=== PATIENT | male | born 1935 | race Caucasian/White ===

== ENCOUNTER 2016-12-22 00:23 | Observation (INO) | payer MEDICARE ==
[~2016-12-22] VITALS: Ht 172.7 cm; Wt 74.6 kg
[~2016-12-22 00:23] MED LIST: ASPI1TAB PO; CARV12.5 PO; DILT240C75 PO; DOXA1TAB41 PO; LISI-538 PO; LISI40TAB PO; OMEP20CA3 PO; VITMTA PO
[2016-12-22] MEDS ORDERED: SIMV40TA2 PO (00:40)
[2016-12-22] MEDS ORDERED: AMIO20TA PO (00:40)
[2016-12-22] MEDS ORDERED: LOPR1TAB6 PO (00:40)
[2016-12-22] MEDS ORDERED: hydrALAZINE INJ 20 MG/ML VIAL IV ONE ×2 (01:00→03:00)
[2016-12-22 01:04] LABS: BASO % 0.6 % (0.0-1.0); EOS # 0.8 K/mm3 (0.0-0.50); LARGE UNSTAINED CELL # 0.2 K/mm3 (0.0-0.4); LARGE UNSTAINED CELL % 2.4 % (0.0-4.0); LYMPH # 2.5 K/mm3 (1.5-4.5); LYMPH % 29.2 % (24.0-44.0); MEAN CORPUSCULAR HEMOGLOBIN 27.7 pg (27.0-33.0); MEAN CORPUSCULAR VOLUME 83.9 fl (80.0-96.0); MONO # 0.6 K/mm3 (0.0-0.8); NEUTROPHILS # 4.3 K/mm3 (1.8-7.7); NEUTROPHILS % 50.8 % (36.0-66.0); PLATELET COUNT, AUTOMATED 333 k/mm3 (150-450); RED CELL DISTRIBUTION WIDTH 14.8 % (11.5-14.5); WHITE BLOOD COUNT 8.5 K/mm3 (4.0-10.0)
[2016-12-22 01:35] LABS: ANION GAP 6 MEQ/L (8-16); BLOOD UREA NITROGEN 12 MG/DL (7-18); CALCIUM LEVEL 9.2 MG/DL (8.8-10.2); CARBON DIOXIDE LEVEL 30 MEQ/L (21-32); CHLORIDE LEVEL 103 MEQ/L (98-107); CREATININE FOR GFR 1.25 MG/DL (0.70-1.30); GLOMERULAR FILTRATION RATE 58.7 (>35); GLUCOSE, FASTING 112 MG/DL (83-110); POTASSIUM SERUM 3.6 MEQ/L (3.5-5.1); SODIUM LEVEL 139 MEQ/L (136-145)
--- NOTE | 2016-12-22 02:20 | REPUSA ---
CLINICAL HISTORY: Headache. TECHNIQUE: Multiple axial CT images were obtained through the brain without IV contrast material. COMMENTS: There is normal configuration of sella turcica. There are no intra or extra-axial collections. There is no mass effect or midline shift. There is no evidence of hematoma formation. No hydrocephalus is p resent. The ventricles are symmetrical. No abnormal calcifications are present. There is diffuse age-appropriate cerebellar and cerebral atrophy with proportionally dilated ventricl es and cortical sulci. There are bilateral periventricular and subcortical white matter hypolucencies compatible with mild c hronic microvascular disease. Otherwise, no significant focal abnormalities are seen either in the posterior fossa or supratentoria l compartment. IMPRESSION: 1. Age-appropriate cerebellar and cerebral atrophy. 2. Mild chronic microvascular disease. 3. No evidence of acute intracranial pathology. Thank you for your kind referral of this patient.
[2016-12-22] MEDS ORDERED: ACETAMINOPHEN TAB 650MG DOSE (2X325MG) PO PRN (03:45)
[2016-12-22] MEDS ORDERED: LISI-542 PO (04:06)
[2016-12-22] MEDS ORDERED: FUSICAP PO (04:06)
[2016-12-22] MEDS ORDERED: TYLE325T5 PO (04:06)
[2016-12-22 05:26] VITALS: BP 190/90
[2016-12-22] MEDS ORDERED: LISINOPRIL 10 MG TAB PO SCH (07:30)
[2016-12-22 07:35] VITALS: BP 182/100
[2016-12-22 08:23] LABS: MEAN CORPUSCULAR VOLUME 83.9 fl (80.0-96.0); RED CELL DISTRIBUTION WIDTH 14.9 % (11.5-14.5); WHITE BLOOD COUNT 9.8 K/mm3 (4.0-10.0)
[2016-12-22] MEDS: ASPIRIN 81 MG ENTERIC TAB PO SCH (08:41)
[2016-12-22 08:42] LABS: ANION GAP 8 MEQ/L (8-16); BLOOD UREA NITROGEN 11 MG/DL (7-18); CARBON DIOXIDE LEVEL 28 MEQ/L (21-32); CHLORIDE LEVEL 105 MEQ/L (98-107); CREATININE FOR GFR 1.22 MG/DL (0.70-1.30); GLOMERULAR FILTRATION RATE > 60.0 (>35); GLUCOSE, FASTING 140 MG/DL (83-110); POTASSIUM SERUM 3.8 MEQ/L (3.5-5.1); SODIUM LEVEL 141 MEQ/L (136-145)
[2016-12-22] MEDS: OMEPRAZOLE 20 MG CAP PO SCH (08:42)
[2016-12-22] MEDS: MULTIVITAMINS/MINERALS THERAP 1 TAB PO SCH (08:42)
[2016-12-22] MEDS: METOPROLOL TART 50 MG TAB PO SCH ×2 (08:42→20:30)
[2016-12-22] MEDS: AMIODARONE 200 MG TAB (PACERONE) PO SCH (08:42)
[2016-12-22] MEDS: HEPARIN SOD (PORCINE) 5000 UNITS/ML VIAL SQ SCH ×2 (08:43→20:28)
[2016-12-22] MEDS ORDERED: LISINOPRIL 5 MG TAB PO SCH (09:00)
--- NOTE | 2016-12-22 09:12 | REP ---
PORTABLE CHEST: Single portable view of the chest is performed and compared to a prior study of 06/15/2016. There is left lower lobe infiltrate and pleural effusion. No acute infiltrate is seen on the right. Heart size is not well evaluated. Multiple sternal wires are present. IMPRESSION: Left lower lobe infiltrate with small left effusion. Signed by Pastor Olmos MD 12/22/2016 05:40 P
--- NOTE | 2016-12-22 09:14 | REP ---
TWO VIEW CHEST: Two views of the chest are performed. There is left lower lobe infiltrate with small left effusion. Right lung demonstrates no acute infiltrate. Heart size is not well evaluated. Multiple sternal wires are present. There are degenerative changes of the spine. IMPRESSION: Left lower lobe infiltrate and small left effusion. Signed by Pastor Olmos MD 12/22/2016 05:40 P
[2016-12-22 09:45] VITALS: BP 180/88
[2016-12-22 12:00] VITALS: BP 196/100
[2016-12-22] MEDS: ISOSORBIDE DIN (ISORDIL) 10 MG TAB PO SCH ×2 (13:30→20:30)
--- NOTE | 2016-12-22 15:23 | REP ---
CT CHEST: HISTORY: Pleural effusion assessment. COMPARISON CHEST CT: None. Limited evaluation of the mediastinum and pulmonary josé show no evidence of adenopathy. There is a left pleural effusion which is small, but a portion of which appears loculated and is seen in conjunction with areas of consolidation of the left lower lobe and inferior lingula with air bronchograms. There is no pericardial effusion. The imaged upper abdomen shows cholelithiasis and a partially imaged right renal cyst. Evaluation of the osseous structures shows age-related spinal degenerative changes and evidence of previous median sternotomy. Evaluation of the lung jensen show no spiculated masses. IMPRESSION: Loculated pleural fluid on the left as described above with areas of lung consolidation and air bronchograms, infectious versus neoplastic versus atelectatic etiologies. This needs to be correlated clinically with appropriate followup. The imaged upper abdomen shows cholelithiasis and a partially imaged right renal cyst. Consider complete evaluation of the renal changes with ultrasound. Other findings as described above. Signed by Kris Keita DO 12/22/2016 04:53 P
--- NOTE | 2016-12-22 16:26 | IPN ---
DATE: 12/22/2016 PRIMARY CARE PROVIDER: Dr. Palomo MOUNT LOADER: The patient is supposed to see Dr. Edgar Patient was admitted overnight for hypertension. Denies any chest pain, pressure or discomfort. Denies any fevers or chills. Recently had a coronary artery bypass graft (CABG). Was also complicated with subsequent pleural effusions requiring two thoracenteses. The patient denies any chest pain, pressure or discomfort. Denies any shortness of breath at this time. VITAL SIGNS: Temperature 96, pulse 72, respirations 18, blood pressure 196/100. Repeat blood pressure 174/86. LABORATORY DATA: WBC 9.8, hemoglobin and hematocrit 11.4/36.9, platelets 357. Chemistry: Sodium 141, potassium 3.8, chloride 105, bicarbonate 28, BUN 11, creatinine 1.22. Cardiac enzymes negative times three. PHYSICAL EXAMINATION: GENERAL: The patient is alert and oriented times three. No acute distress. Comfortable. HEENT: Normocephalic, atraumatic. PULMONARY: Bilaterally clear to auscultation. Diminished breath sounds in the left lower base. CARDIAC: Regular rate and rhythm. Normal S1, S2. ABDOMEN: Soft, nontender. Positive bowel sounds. EXTREMITIES: No edema in bilateral lower extremities. ASSESSMENT AND PLAN: This is an 81-year-old male patient with underlying medical history of hypertension, benign prostatic hypertrophy (BPH) with transurethral resection of prostate (TURP) in the past and history of syncope. Recently, the patient had a coronary artery bypass graft (CABG) in [place] about 6 weeks ago. Subsequently developing two episodes of pleural effusion requiring thoracentesis. Subsequently, the patient is visiting [place] for the summer and realized that he has blood pressure in the 180s to 200s. Subsequently, presented to the emergency room and was admitted. 1. Hypertensive urgency. The patient's home medication of Lisinopril was increased to Lisinopril 10 mg by mouth twice a day, metoprolol 25 mg by mouth twice a day were continued. Isordil 10 mg by mouth every 8 hours was continued. Followup kidney function. Adjust medications as needed. 2. Coronary arterial disease with recent coronary artery bypass graft (CABG). Continue aspirin, iyfbedcayoh-cgadvjkbop-wdnsrh (DOMINIC) inhibitor, beta yasmeen. Isordil has been added. Continue statin. Monitor blood pressure. Cardiac enzymes negative times three. Cardiology, Dr. Edgar, has been consulted. 3. Cardiac arrhythmia. The patient is on amiodarone 200 mg by mouth daily. Telemetry monitoring. 4. Pleural effusion. Requesting records from the patient's [facility] for chest x-ray. CT of the chest appreciated. Currently minimal loculated effusion with no dyspnea. We will compare previous x-ray to the current x-ray. We will discuss the case with thoracic surgery, Dr. Colunga. Incentive spirometry. 5. History of gastrointestinal bleed. Followup hemoglobin and hematocrit. Currently at baseline. 6. Deep vein thrombosis (DVT) prophylaxis. Heparin subcutaneously. DISPOSITION PLANNING: Pending cardiology followup, optimization of the patient's blood pressure, physical therapy has been ordered.
[2016-12-22 16:30] VITALS: BP 140/80
[2016-12-22] MEDS: SIMVASTATIN 40 MG TAB PO SCH (17:29)
--- NOTE | 2016-12-22 17:30 | REP ---
RENAL ULTRASOUND: HISTORY: Cyst. COMPARISON: 06/23/2016. The kidneys are increased in echogenicity. The right kidney measures 5 cm in transverse x 6 cm in AP x 10.7 cm in cephalocaudal dimensions. The left kidney measures 4.5 cm in transverse x 4 cm in AP x 10.8 cm in cephalocaudal dimensions. A cyst is present in the right kidney. The cyst measures 2.5 x 2.6 x 2.5 cm. There is no hydronephrosis or mass. There are no filling defects in the urinary bladder. IMPRESSION: 1. 2.6 cm right renal cyst. 2. The kidneys are increased in echogenicity consistent with medical renal disease. Signed by Herb Byrd MD 12/23/2016 08:41 A
[2016-12-22 20:00] VITALS: BP 166/81
[2016-12-22] MEDS: FUROSEMIDE 20 MG TAB PO SCH (20:28)
[2016-12-22] MEDS: DOCUSATE SODIUM 100 MG CAP PO SCH (20:28)
[2016-12-22] MEDS: LISINOPRIL 10 MG TAB PO SCH (20:30)
--- NOTE | 2016-12-22 20:32 | CR ---
DATE OF CONSULTATION: 12/22/2016 REFERRING PHYSICIAN: Dr. Posadas He INDICATION: Recent open heart surgery, pleural effusion, hypertension. HISTORY OF PRESENT ILLNESS: Mr. Ribeiro is previously unknown to me. He is a very pleasant 81-year-old man who has a history of coronary artery bypass surgery on 11/17/2016 in [place]. He reportedly received four-vessel bypass. I currently do not have the records from the procedure. Apparently his postoperative course was somewhat bumpy, he in the process had episodes of atrial fibrillation. He had repeated thoracentesis, the second one was last week on where approximately half a liter was removed from his left chest. He also had very variable blood pressure, apparently after initial discharge from hospital he had a syncopal event at home that was felt to be related to severe hypotension. He was readmitted to the hospital, several of his medications were removed. One of the medications that was taken off was furosemide and his family noted that since its discontinuation his blood pressure has been slowly climbing up. On the day of admission he took his blood pressure at home and when he got repeated measurements over 200 he got quite concerned. He felt relatively well. He tells me that he has mild pressure in his head when his blood pressure exceeds 200 mmHg systolic, but did not have any chest pain, shortness of breath or any other symptoms. PAST MEDICAL HISTORY: 1. Coronary artery disease, history of four-vessel coronary artery bypass graft (CABG) on 11/17/2016. 2. Postoperative paroxysmal atrial fibrillation currently on amiodarone. 3. Longstanding history of arterial hypertension. 4. History of BPH. 5. History of peptic ulcer disease with apparently active gastrointestinal (GI) bleeding shortly prior to his open heart surgery. SURGICAL HISTORY: Positive for CABG, left rotator cuff repair and transurethral resection of the prostate (TURP). OUTPATIENT MEDICATIONS: - aspirin 81 mg a day - lisinopril he was taking just 2.5 mg at home - simvastatin 20 mg a day - isosorbide dinitrate 10 mg three times a day - amiodarone 200 mg a day - aspirin 81 mg a day - metoprolol 25 twice a day - omeprazole 20 a day - multivitamin - Tylenol as needed ALLERGIES: He reports no history of intolerance or allergies to medications but he tells me that in the past he had severe orthostatic hypotension with clonidine. SOCIAL HISTORY: The patient is . He is retired. 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 He has a remote history of smoking, quit in 1950s. No significant alcohol use. He lives with his . FAMILY HISTORY: His mother lived to be 105. His father in 60s of renal failure. He has a sister who has hypertension and dementia. REVIEW OF SYSTEMS: He denies any recent fever, chills, nausea, vomiting. There has been no shortness of breath. No chest pain, occasional headache. No palpitations. No abdominal pain. No diarrhea. No peripheral edema. No syncope or near syncope. He has been quite active since his surgery, swimming and walking every day and generally having no problems doing so. PHYSICAL EXAMINATION: Mr. Ribeiro is an 81-year-old man who appears actually younger than his calendar age. He appears to be in good spirits and in no distress. The last set of vital signs reveal blood pressure 140/80, heart rate has been in 70s and 80s. He is afebrile. Saturation 94% on room air. Weight is documented 74 kg. His JVP is not elevated. Lungs are clear to auscultation with good air movement. Heart exam reveals regular rhythm. I do not appreciate any gallop or rub. No murmur. There are no bruits over carotid arteries. His sternotomy is well-healed. There are somewhat diminished breath sounds over approximately one-third of left lower lung field. Abdomen is soft, nontender. No hepatosplenomegaly. No peripheral edema or maybe trace. Peripheral pulses are good quality. Neurologically he is intact. LABORATORY DATA: Basic metabolic panel is normal. Potassium was 3.8, BUN 11, creatinine 1.2, glucose 140. He has three sets of negative cardiac enzymes and CBC reveals hemoglobin 11.4, hematocrit 37 and platelet count 357. His ECG reveals sinus rhythm and is highly suggestive of left ventricular hypertrophy with secondary repolarization abnormalities. Chest x-ray is consistent with left pleural effusion and maybe borderline cardiomegaly. CT of the chest reveals mostly loculated left pleural effusion that was interpreted as small, I would call it probably small to moderate size. ASSESSMENT/PLAN: Mr. Ribeiro is an 81-year-old man who has recent coronary artery bypass surgery and has longstanding history of hypertension. His reason to come to the hospital was very high blood pressure. It appears that he has had longstanding history of hypertension and there were numerous changes in his medications after open heart surgery. He had episodes of severe hypotension when he was probably over diuresed and then the medications were cut back very significantly. At this point I would recommend that we will put him back on furosemide 20 mg daily which he was on fairly recently, not only that it should help his blood pressure but also potentially help with his pleural effusion. I would continue metoprolol in current dose. The lisinopril was increased to 10 mg twice a day and I would leave it as such. He will monitor blood pressure at home and I told him that if his blood pressure is elevated but he is feeling otherwise well, he does not have to go emergently to the hospital but can call the office. I do expect just with time his blood pressure will improve. I asked him to keep a log of home measurements to be taken twice a day, first thing in the morning and then one measurement in the afternoon hours. He is scheduled to see Dr. Palomo in followup on 12/31/2016, and he is scheduled in my office on 01/11/2017. We will keep those appointments. I do believe that he will be able to go home tomorrow morning provided his blood pressure is not going to be extremely elevated.
--- NOTE | 2016-12-22 21:22 | HPE ---
DATE OF ADMISSION: 12/22/2016 CHIEF COMPLAINT: Elevated blood pressure. PRIMARY CARE PROVIDER: Dr. Palomo This is an 81-year-old male with a history of hypertension, benign prostatic hypertrophy (BPH) with transurethral resection of prostate (TURP) in the past. He recently had a coronary artery bypass graft in [place] approximately 6 weeks ago. Subsequently, he developed two episodes of pleural effusion requiring thoracentesis, the last being on for approximately 0.5 liter, per the family. He came here for the summer. His blood pressure went up today. At home, it was 228. He had a headache but no other neurological signs. Upon arrival in the emergency room, his blood pressure was 226/108. Heart rate was 77. Respirations 18. Oxygen saturation was 95% on room air. He was given IV hydralazine times two. His headache improved. Blood pressure decreased to 188/88. EKG was done and showed sinus rhythm. LABORATORY STUDIES: White count was normal at 8.5, hemoglobin and hematocrit 11.9 and 36, platelets were 333. Electrolytes were normal. BUN was 6. Creatinine 1.25. CPK and CK- MB were normal. Troponin was less than 0.02. Head CT was negative. Chest x-ray showed left lower lobe infiltrate with small left effusion. He had no cough. No wheeze. He was afebrile. Assessment was done and the patient will be admitted with uncontrolled hypertension, recurrent left pleural effusion to progressive care unit (PCU) on telemetry. ALLERGIES: No known allergies. SOCIAL HISTORY: He is . He does not smoke cigarettes. He does not drink alcohol. PAST MEDICAL HISTORY: 1. Hypertension. 2. Coronary artery disease, status post bypass approximately 6 weeks ago. 3. Pleural effusion. 4. Hypercholesterolemia. 5. Benign prostatic hypertrophy (BPH) with history of TURP. PAST SURGICAL HISTORY: 1. Quadruple bypass 11/06/2016. 2. Tonsillectomy. 3. Adenoidectomy. 4. TURP. 5. Repair of left rotator cuff. FAMILY HISTORY: Noncontributory. HOME MEDICATIONS: - lisinopril 40 mg by mouth daily - aspirin 81 mg by mouth daily - multivitamin one by mouth daily - omeprazole 20 mg by mouth daily - amiodarone 200 mg by mouth daily - metoprolol 25 mg by mouth twice a day - simvastatin 20 mg by mouth daily REVIEW OF SYSTEMS: Other than the headache, which has improved, he had no complaints. No current chest pain, shortness of breath, or palpitations. PHYSICAL EXAMINATION: GENERAL: 81-year-old cooperative male in no acute distress. Blood pressure 188/80, pulse 80, respirations 18. Height 5 feet 8 inches. Weight 165 pounds. The patient is alert and oriented times three. HEENT: Pupils are equal and reactive to light. Extraocular muscles intact. Sclerae clear. Conjunctivae normal. No facial asymmetry. Pharynx, gums and tongue pink and moist. Tongue is midline. NECK: Supple without lymphadenopathy. No thyromegaly. No goiter. Carotids 2 + without bruit. CHEST: Decreased breath sounds at the base. No wheeze or retraction. HEART: Regular without murmur or gallop. ABDOMEN: Benign. Bowel sounds positive. GENITOURINARY/RECTAL: Not done. EXTREMITIES: No cyanosis, clubbing or edema. Peripheral pulses equal and palpable bilaterally. IMPRESSION/PLAN: 1. Hypertensive urgency. Continue current medications. Increase Lisinopril. 2. Carotid artery disease with recent coronary artery bypass graft (CABG). We will continue aspirin, pipqttniazz-ohzaboysta-cuzaxv (DOMINIC) inhibitor, beta yasmeen. Continue statin. Monitor blood pressure. Do serial cardiac enzymes. Cardiology consultation. 3. Cardiac arrhythmia. The patient continues on amiodarone. The patient will be placed on telemetry. 4. Pleural effusion. We will get chest CT. Discuss with Dr. Colunga. 5. History of gastrointestinal bleed. Currently stable. The patient will be admitted to the telemetry floor for further stabilization and workup. I have both independently examined this patient as well as reviewed the H&P. I have discussed in detail with the SIGN WIRER the findings and plan of treatment as documented in the SIGN WIRER'ss note. I will continue to follow the patient and offer further guidance to the patients care as necessary during this hospital stay. Katharina BUI
[2016-12-23] VITALS: BP 146/72
[2016-12-23 04:00] VITALS: BP 153/81
[2016-12-23 06:08] LABS: MEAN CORPUSCULAR HEMOGLOBIN 26.4 pg (27.0-33.0); MEAN CORPUSCULAR VOLUME 85.1 fl (80.0-96.0); RED CELL DISTRIBUTION WIDTH 15.2 % (11.5-14.5); WHITE BLOOD COUNT 7.1 K/mm3 (4.0-10.0)
[2016-12-23] MEDS: ISOSORBIDE DIN (ISORDIL) 10 MG TAB PO SCH ×3 (06:10→21:41)
[2016-12-23 06:32] LABS: CALCIUM LEVEL 8.2 MG/DL (8.8-10.2); CREATININE FOR GFR 1.24 MG/DL (0.70-1.30); GLOMERULAR FILTRATION RATE 59.3 (>35); MAGNESIUM LEVEL 1.9 MG/DL (1.8-2.4); POTASSIUM SERUM 3.6 MEQ/L (3.5-5.1)
[2016-12-23 07:25] VITALS: BP 118/58
--- NOTE | 2016-12-23 08:18 | ECGEPIP ---
Stationary ECG Study [facility] - ED Test Date: 2016-12-22 Pat Name: VELMA CABALLERO Department: Room: [place] [address] Gender: M Lead Setter: seamus : 1935 Requested By: JULIOCESAR Adams Order Number: [id number] Reading MD: Juliette Maurer Measurements Intervals Bishop Rate: 72 P: 5 GA: 136 QRS: -24 QRSD: 108 T: 178 QT: 411 QTc: 452 Interpretive Statements SINUS RHYTHM LEFT ATRIAL ENLARGEMENT BORDERLINE LEFT AXIS DEVIATION LEFT VENTRICULAR HYPERTROPHY AND ST-T CHANGE INCREASED RATE 06/15/16 Electronically Signed On 12-23-2016 8:18:12 EDT by Juliette Maurer
--- NOTE | 2016-12-23 08:31 | IPN ---
DATE: 12/23/2016 Mr. Ribeiro has been feeling fine and has no complaints. He slept well. Blood pressure 118/58, heart rate has been in the 70s to 90s. He is afebrile. Saturation is 100% on room air. His fluid balance yesterday was mildly negative. Weight documented is 75.2. He is alert, oriented and appropriate. His jugular venous pressure is not elevated. Heart reveals regular rhythm without gallop, rub or murmur. There are still diminished breath sounds about one-third to one-half of his left lung field but no wheezing, crackles or rhonchi seen. Abdomen is soft, nontender. No peripheral edema. Neurologically intact. LABORATORY: Hemoglobin 10.3, hematocrit 33, platelet count 301,000. Basic metabolic panel is normal. ASSESSMENT AND PLAN: Mr. Ribeiro is an 81-year-old man who is 6 weeks after coronary artery bypass graft (CABG). He had postoperative paroxysmal atrial fibrillation, for which he has been on amiodarone. He also has trouble with regulating his blood pressure. He came with hypertensive urgency with systolic blood pressure over 200 and associated headache, but now his blood pressure is actually relatively low. I believe we can discharge him on current medication regimen. I told him that it if the blood pressure gets low or too high, he can always call my office. Otherwise, he is tentatively scheduled to see Dr. Palomo next week, and I will see him in approximately 2 weeks. As far as the pleural effusion is concerned, he just a thoracentesis last . He is asymptomatic and even though the effusion is mild to moderate size, I do not believe that it needs to be drained. I would advocate to have conservative therapy. If it should grow again, then it can always be reconsidered.
[2016-12-23] MEDS: DOCUSATE SODIUM 100 MG CAP PO SCH ×2 (08:39→21:42)
[2016-12-23] MEDS: FUROSEMIDE 20 MG TAB PO SCH (08:40)
[2016-12-23] MEDS: ASPIRIN 81 MG ENTERIC TAB PO SCH (08:40)
[2016-12-23] MEDS: LISINOPRIL 10 MG TAB PO SCH ×2 (08:41→21:42)
[2016-12-23] MEDS: MULTIVITAMINS/MINERALS THERAP 1 TAB PO SCH (08:41)
[2016-12-23] MEDS: AMIODARONE 200 MG TAB (PACERONE) PO SCH (08:41)
[2016-12-23] MEDS: HEPARIN SOD (PORCINE) 5000 UNITS/ML VIAL SQ SCH ×2 (08:41→21:42)
[2016-12-23] MEDS: METOPROLOL TART 50 MG TAB PO SCH ×2 (08:41→21:41)
[2016-12-23] MEDS: OMEPRAZOLE 20 MG CAP PO SCH (08:41)
[2016-12-23 10:58] LABS: INR 1.07
--- NOTE | 2016-12-23 11:26 | CR ---
DATE OF CONSULTATION: 12/23/2016 Patient seen at the request of the hospitals, Dr. Barajas, for a pleural effusion. HISTORY OF PRESENT ILLNESS: The patient is an 81-year-old white male who is now approximately 6-7 weeks status post quadruple coronary bypass graft procedure using the left internal mammary artery. The procedure was done in [place]. He developed recurrent pleural effusions and he was drained twice, the first time for a liter and the second time for about half a liter. He came into the hospital was a completely unrelated problem regarding hypertension. He self monitors his blood pressure. He found it to be over 200 and therefore sought medical attention in the emergency room. At that time, a CT scan was undertaken which showed a moderate sized pleural effusion probably about 750 to 1000 mL within the chest with lung compression. He does not complain of shortness of breath nor does he complain of cough, fever, chills, sweats or sputum production. He has no chest pain. There is no dysphagia. His oxygen saturation is 95% on room air in the emergency room. He did complain of headache with his hypertension. PAST MEDICAL HISTORY: 1. Coronary artery disease. 2. Hypertension. 3. Hypercholesteremia. 4. Benign prostatic hypertrophy (BPH). PAST SURGICAL HISTORY: 1. Quadruple coronary bypass grafting using left anterior descending coronary artery and saphenous vein grafts on 11/06/2016. 2. Status post tonsillectomy and adenoidectomy in the remote past. 3. Status post transurethral resection of the prostate (TURP) in the remote past. 4. Repair of rotator cuff in the remote past. FAMILY HISTORY: Not obtained and noncontributory to the present pleural effusion problem. HOME MEDICATIONS: - lisinopril 40 mg daily - aspirin 81 mg daily - multivitamins one daily - omeprazole 20 mg daily - amiodarone 20 mg daily - metoprolol 25 mg twice daily - simvastatin 20 mg daily TRAVEL HISTORY: He has been to [place] and to [place]. No travel to the [facility]. HABITS: Denies alcohol use and is not a smoker. He is a former smoker. OCCUPATIONAL HISTORY: He used to work as a banker. There is no asbestos exposure. EXPOSURES: No dogs, cats or birds at home. REVIEW OF SYSTEMS: Constitutional: Without fevers, chills, seats or night sweats. Eyes: Without diplopia, without amaurosis fugax, without prior jaundice. He does wear reading glasses. Nose without epistaxis. Mouth: Has his own teeth. Respiratory: See HPI. Cardiac: See HPI. Does not complain of orthopnea or paroxysmal nocturnal dyspnea or intermittent claudication. GI: Without nausea, vomiting, diarrhea, constipation, melena, hematochezia or abdominal pain. : Without history of renal stones, dysuria or hematuria. Neurologic: Without paresthesias, paralysis or seizures but does complain of the above headache. Endodrine: Without diabetes, without thyroid disease. Lymphatics: Without lumps, bumps in neck, axilla or groin. Psychiatric: Without pathological anxieties, psychoses or depressions. Hematological: Without prolonged bleeding times. PHYSICAL EXAMINATION: Well-developed, well-nourished white male in no acute distress. Vital signs: Temperature of 96.0, heart rate is 98 in sinus rhythm. Respiratory 18 to 20 without the use of accessory muscles and he is 99% saturated on room air with a blood pressure of 118/58. Eyes: Pupils equal, round, react to light. Extraocular motor intact. Sclera anicteric. Nose without deformity. Mouth shows mucous membranes to be pink and moist. Lips and commissures without lesions. He has his own teeth in fairly good repair with multiple missing teeth. Neck is supple. There is no jugular venous distention. No subcutaneous emphysema. Trachea is midline. There is no carotid bruits. He has 2+ carotid upstrokes without lymphadenopathy or thyromegaly. Lungs: Show decreased breath sounds on the left side with dull percussion at the left base. I hear no wheezes, rhonchi or rales otherwise. Cardiac: Exam is without murmurs, clicks, gallops or ribs. I cannot feel his PMI. S1, S2 are normal. Abdomen: Soft, nontender, bowel sounds positive. There is no hepatomegaly. There is CVA tenderness. Extremities: Show no pretibial edema. No calf tenderness. No differential swelling of the upper extremities. Skin is warm, dry and perfusion without cyanosis. Neuro shows II through XII intact with gross motor and gross sensation intact. Gait is not tested. Psychiatric shows him to be awake, alert, oriented times three with appropriate mood and affect and conversational. His white count is 7.1, with hemoglobin and hematocrit of 10.3 and 33.3 respectively with a platelet count 301. Differential yesterday in the emergency room showed 50% neutrophils, 29% lymphocytes, 7% monocytes and 10% eosinophils. Electrolytes are normal with BUN and creatinine of 12 and 1.24, calcium 8.2 and magnesium 1.9. His chest x-ray done yesterday PA lateral shows a pleural effusion mcc up the chest on the lateral view. I do not quite appreciate that his diaphragm is elevated although his and he say that other doctors have told them such but rather I think it is rather the pleural effusion. I see no other infiltrates on the remaining chest film. His chest CT done also yesterday without contrast confirms the pleural effusion on the left side. He has an azygos lobe on the right side parenthetically. He has a lung compression beneath the pleural effusion of the right lower lobe. I see no masses. His adrenals have a normal configuration and I see no liver lesions. His lung parenchymal looks intact and I do not see any emphysematous changes. There is a small peripheral nodule measuring 3 mm at the surface of the right upper lobe. IMPRESSION: 1. Left subpleural effusion. 2. Coronary artery disease. 3. Status post coronary bypass grafting via median sternotomy with a left internal mammary artery graft. 4. Hypertension. 5. Eosinophilia of unknown origin. 6. Hypercholesterolemia. 7. Prior history of benign prostatic hypertrophy (BPH). DISCUSSION AND PLAN: I will have his pleural effusion drained by pigtail catheter. I suspect this is again secondary to his cardiac surgery from a concentration gradient caused by hemolysis of blood after the left internal mammary artery harvest. It needs to be completely drained with complete evacuation of the chest with full expansion of the lung to the chest wall. I will keep him on suction for 24 hours and probably pull the Guzman catheter in the morning. I do not have a good expansion for his eosinophilia although he is on multiple medications including amiodarone which can cause that as a benign side effect. I suspect that he was placed on amiodarone after heart surgery because of atrial fibrillation. I might suggest that that be considered the to be discontinued.
--- NOTE | 2016-12-23 11:29 | IPN ---
DATE OF SERVICE: 12/23/2016 PRIMARY CARE PROVIDER: Mitch Palomo Jr., MD ATTENDING PHYSICIAN: MD Timbo Roca was seen while rounding for the hospitalists. Admitted with elevated blood pressure and shortness of breath. He has loculated left pleural effusion, for which he is undergoing thoracentesis today through Dr. Colunga. He is also well known to Dr. Edgar, and he and I discussed the case earlier today. The patient is status post coronary artery bypass graft (CABG) about 6 weeks ago. Has had recurrent problems with shortness of breath and pleural effusion since then. PHYSICAL EXAMINATION: 118/58, pulse 98, respiratory rate 18, 100% oxygen (O2) saturation. General appearance: He is resting comfortably. In no distress. HEENT: Unremarkable. Lungs: Decreased breath sounds left side. Heart: Regular rate and rhythm. Abdomen: Soft, nontender. No peripheral edema. LABORATORIES: White count 7.1, hemoglobin 10.3, platelets 301. Sodium 141, potassium 3.6, BUN 12, creatinine 1.2, glucose 97, troponin negative times three. INR is pending. IMPRESSION: 1. Left pleural effusion. The case discussed with Dr. Colunga. He feels the patient needs pleurocentesis, and a pigtail catheter is going to be placed. I appreciate his assistance. 2. Coronary artery disease, status post coronary artery bypass graft, with recurrent problems with pleural effusion since then. Being followed by Dr. Edgar. He and I have discussed the case. 3. Hypertension. Blood pressures are labile. Prone to hyper- and hypotension. I appreciate Dr. Edgar's input on this. 4. History of gastrointestinal (GI) bleed. Hemoglobin is stable. He is not on anticoagulant. 5. Hyperlipidemia. Continue his current dose of simvastatin. 6. History of postoperative atrial fibrillation, in sinus rhythm currently. He is on amiodarone. He is not anticoagulated at present.
[2016-12-23 13:30] VITALS: BP 173/84
--- NOTE | 2016-12-23 13:40 | REP ---
CHEST: Two views of the chest are performed. There is placement of a pigtail catheter into the posterior left pleural space. Left pleural fluid has diminished. There is adjacent left basilar atelectasis/infiltrate with elevation of the left hemidiaphragm. There is no pneumothorax. Cardiomediastinal silhouette is unchanged. Signed by Pastor Olmos MD 12/23/2016 07:48 P
[2016-12-23 13:48] LABS: RBC PLEURAL FLUID 20 (<10mm3 cells/uL); TNC PLEURAL FLUID 3576 cells/uL (0-20)
[2016-12-23 13:49] LABS: BF DIFF IF INDICATED? YES (NO)
[2016-12-23 13:50] LABS: LDH, BODY FLUID 179 U/L (NOT ESTABLISHED); TOTAL PROTEIN, BODY FLUID 5.1 G/DL (NOT ESTABLISHED)
[2016-12-23 14:12] LABS: CC BF DIFF EXAM CYTOCENTRIFUGE
[2016-12-23 16:00] VITALS: BP 109/56
[2016-12-23] MEDS: SIMVASTATIN 40 MG TAB PO SCH (17:32)
--- NOTE | 2016-12-23 17:41 | REP ---
ULTRASOUND GUIDED LEFT THORACENTESIS WITH CATHETER PLACEMENT: The procedure was performed under the direct supervision of Dr. Olmos. The risks and benefits of the procedure were explained to the patient and informed consent was obtained. The left pleural effusion was localized using ultrasound guidance. The skin was prepped and draped in a sterile fashion. 1% lidocaine was used as a local anesthetic. Using ultrasound guidance a #10-[place] skater APDL catheter was inserted using trocar technique. 260 mL of juvenal-colored fluid was withdrawn and sent to the lab. The catheter was affixed to the skin and a sterile dressing was applied. The catheter was connected to a Pleur-evac. The patient tolerated the procedure well and there were no immediate complications. Reviewed by BRANDEN Valente 12/23/2016 05:42 PEdited and Signed by Pastor Olmos MD 12/23/2016 07:42 P
[2016-12-23 20:00] VITALS: BP 125/71
[2016-12-24] VITALS: BP 110/56
[2016-12-24 04:00] VITALS: BP 126/60
[2016-12-24 05:58] LABS: MEAN CORPUSCULAR HEMOGLOBIN 26.5 pg (27.0-33.0); MEAN CORPUSCULAR HGB CONC 31.3 g/dl (32.0-36.5); MEAN CORPUSCULAR VOLUME 84.6 fl (80.0-96.0); RED CELL DISTRIBUTION WIDTH 15.1 % (11.5-14.5); WHITE BLOOD COUNT 7.5 K/mm3 (4.0-10.0)
[2016-12-24] MEDS: ISOSORBIDE DIN (ISORDIL) 10 MG TAB PO SCH (06:06)
[2016-12-24 06:20] LABS: CALCIUM LEVEL 8.1 MG/DL (8.8-10.2); CREATININE FOR GFR 1.34 MG/DL (0.70-1.30); GLOMERULAR FILTRATION RATE 54.2 (>35); MAGNESIUM LEVEL 1.8 MG/DL (1.8-2.4); POTASSIUM SERUM 3.4 MEQ/L (3.5-5.1)
[2016-12-24 07:15] VITALS: BP 106/64
[2016-12-24 08:30] VITALS: BP 126/72
[2016-12-24] MEDS: HEPARIN SOD (PORCINE) 5000 UNITS/ML VIAL SQ SCH (09:00)
--- NOTE | 2016-12-24 09:13 | REP ---
Chest two views HISTORY: A pleural effusion Comparison: 12/23/2016 Increased density is present in the left lower lobe consistent with atelectasis or infiltrate unchanged compared to the previous study. A pigtail catheter is present in the left hemithorax. There is no pneumothorax. The right lung is clear. A small left pleural effusion is present unchanged compared to the previous study. The heart is normal in size. The pulmonary vasculature is normal in appearance. Degenerative change is present in the thoracic spine. IMPRESSION: 1. Left lower lobe atelectasis or infiltrate unchanged compared to the previous study. 2. Small left pleural effusion unchanged compared to the previous study. Signed by Herb Byrd MD 12/24/2016 09:05 A
[2016-12-24 09:36] VITALS: BP 126/70
[2016-12-24] MEDS: MULTIVITAMINS/MINERALS THERAP 1 TAB PO SCH (09:36)
[2016-12-24] MEDS: METOPROLOL TART 50 MG TAB PO SCH (09:36)
[2016-12-24] MEDS: FUROSEMIDE 20 MG TAB PO SCH (09:36)
--- NOTE | 2016-12-24 09:36 | REP ---
FLUOROSCOPY SNIFF TEST: With respiration, the diaphragms are visualized under fluoroscopy. There is normal excursion of the right hemidiaphragm with inspiration and expiration. Left hemidiaphragm does demonstrate depression with inspiration and elevation with expiration but the degree of movement is mildly less than the right. IMPRESSION: Left hemidiaphragm demonstrates mildly diminished excursion in the appropriate direction with inspiration and expiration. There is no evidence of paradoxical motion or left hemidiaphragm paralysis. 58 seconds fluoroscopy time utilized. Signed by Pastor Olmos MD 12/24/2016 04:45 P
[2016-12-24] MEDS: DOCUSATE SODIUM 100 MG CAP PO SCH (09:37)
[2016-12-24] MEDS: ASPIRIN 81 MG ENTERIC TAB PO SCH (09:37)
[2016-12-24] MEDS: LISINOPRIL 10 MG TAB PO SCH (09:37)
[2016-12-24] MEDS: OMEPRAZOLE 20 MG CAP PO SCH (09:37)
[2016-12-24] MEDS: AMIODARONE 200 MG TAB (PACERONE) PO SCH (09:37)
--- NOTE | 2016-12-24 11:03 | IPN ---
DATE: 12/24/2016 Mr. Ribeiro was drained yesterday by a pigtail catheter. He put out initially 250 mL and total put out 425 mL. He is breathing well and not coughing. Because of his elevated diaphragm that I noted today on chest x-ray on the left side, he went back down for a SNIFF test which showed the diaphragm to be paretic but not paralytic. There was no paradoxical motion and there was some movement of the left diaphragm. His vital signs show a T-max of 98.9 with a heart rate that ranges between 79 and 101 with a respiratory rate of 16 to 20 without the use of accessory muscles who is 95% saturated on room air and has blood pressures ranging between 126/60 to 146/74. His intake and output over the past 24 hours has been recorded as 1720 in and 1761 out for a near quality. He has put out 411 mL from his chest tube yesterday and 18 today in the last 12 hours. He weighs 74.6 kg compared to 75.2 kg yesterday. On physical examination, his lungs show normal vesicular sounds with some faint inspiratory rales on the left side during very late inspiration. Percussion note is full to the diaphragm but dull in the lower portion of the left hemithorax. Cardiac exam is without murmurs, clicks, gallops or rubs. I cannot feel his PMI. S1 and S2 are normal. Abdomen is soft, nontender, bowel sounds are positive. There is no hepatomegaly. No CVA tenderness. Extremities show no pretibial edema. No calf tenderness. No differential swelling of the upper extremities. Skin is warm, dry and perfused without cyanosis or mottling including that of the nail beds and knees. Neck is supple. There is no jugular venous distention. No subcutaneous emphysema. Trachea is midline. Mouth shows his mucous membranes to be pink and moist. Lips and commissures are without lesions. No thrush. Eyes show his pupils to be equal and reactive. Extraocular motor intact. Sclera anicteric. Neuro shows II through XII intact with gross motor and gross sensation intact. Gait is not tested. Psychiatric shows him to be awake and alert, oriented times three with appropriate mood and affect and conversational. His white count today is 7.5 with hemoglobin and hematocrit of 9.9 and 31.6 essentially unchanged from yesterday with a platelet count of 279. His electrolytes show marginally low potassium of 3.4. BUN and creatinine are 15 and 1.34 up from 12 and 1.24 yesterday. Calcium is 8.1 with a glucose of 103 and magnesium of 1.8. The pleural fluid has been reported back with a pH of 7.6 with a LDH of 179 with a corresponding serum LDH of 162, a glucose of 107 with total nucleated cells of 3576 with 69% lymphocytes, 2% neutrophils, 5% eosinophils. This looks to be mildly exudative, noninfective effusion and probably of a chronic nature with 24% monocytes and macrophages. Chest x-ray today shows the lung fully expanded to the chest wall. There is some residual plate atelectasis on the left side. Costophrenic angles are sharp. The lateral chest x-ray showed a high left hemidiaphragm. There is no gastric dilatation although the gastric bubble can clearly be seen below the left hemidiaphragm. The pigtail catheter is in good place. I see no other infiltrates. IMPRESSION: 1. Left subpleural effusion drained with a pigtail catheter. 2. Coronary artery disease. 3. Status post coronary bypass grafting by median sternotomy with left internal mammary artery graft 6 weeks ago in [place]. 4. Hypertension. 5. Eosinophilia of unknown origin. 6. Hypercholesterolemia. 7. Prior history of benign prostatic hypertrophy. 8. 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 PLAN AND DISCUSSION: I will continue his pigtail catheter today. I have discussed the SNIFF test that was just done. I can see no reason why he cannot go home today. Dr. Edgar will follow him as an outpatient for his cardiology problems and should his pleural effusion re-occur, Dr. Edgar will no doubt get in touch with me. I will not see him in followup in the office. I do note that he is in sinus rhythm at this point in time and still on amiodarone.
[2016-12-24] MEDS ORDERED: LASI20TA PO (11:16)
[2016-12-24] MEDS ORDERED: POTA75TA PO (11:17)
[2016-12-24] MEDS ORDERED: FURO20TA2 PO (12:41)
[2016-12-24] MEDS ORDERED: LISI10TA4 PO ×2 (12:41→13:59)
--- NOTE | 2016-12-24 14:08 | DSES ---
DATE OF ADMISSION: 12/22/2016 DATE OF DISCHARGE: 12/24/2016 PRIMARY CARE PROVIDER: Dr. Palomo CONSULTANTS: Dr. Egdar of cardiology. Dr. Colunga of cardiothoracic surgery. PRINCIPAL DIAGNOSIS: Hypertensive urgency. SECONDARY DIAGNOSES: 1. Left pleural effusion status post drainage with pigtail catheter. 2. Coronary artery disease. 3. History of coronary artery bypass graft (CABG) six weeks ago in [place]. 4. Hypertension. 5. Eosinophilia, cause currently unknown. 6. Hyperlipidemia. 7. Benign prostatic hypertrophy (BPH). 8. Paretic left hemidiaphragm, not paralyzed per sniff test today. HISTORY: Timbo Ribeiro was admitted with hypertensive urgency. Details of history and physical from admission. His blood pressure was significantly elevated on admission at 196/100. He also was found to have a left pleural effusion. He had the pleural effusion drained twice, first time for about 1 liter and the second time 0.5 liter. HOSPITALIZATION COURSE: The patient's blood pressure came down with antihypertensive medications. He was seen by cardiology, Dr. Edgar. Consultation had been placed with Dr. Colunga, who felt that the patient would benefit from a pigtail catheter drainage. He did a sniff test and found that the left hemidiaphragm was not paralyzed, just paretic and should return to normal. The patient felt better after the pigtail catheter drainage and on the day of discharge is ready to go home. Followup imaging studies were acceptable and Dr. Colunga cleared him for discharge. SIGNIFICANT LABORATORIES: Today, white count is 7.5, hemoglobin 9.9, platelets 279. Sodium 140, potassium 3.4, BUN 15, creatinine 1.3, glucose 103, troponins were flat. INR unremarkable. Pleural fluid studies are pending. Pathology is pending. DISPOSITION: Patient is discharged home in improved condition. He is to followup with Dr. Palomo in one week. He has an appointment with Dr. Edgar on 01/13/2017. MEDICATIONS: On discharge: - furosemide, dose changed to 20 mg daily - lisinopril dose changed to 10 mg daily Other medications will continue to be: - metoprolol 25 mg twice a day - omeprazole 20 mg daily - simvastatin 20 mg daily - aspirin 81 mg daily - amiodarone 200 mg daily - Tylenol as needed Diet is low fat and low cholesterol. Pending laboratories at this time are all the pleural fluid studies.
== END 2016-12-24 12:57 | disposition home or self-care (01) ==
LOC: M ED 02:16 → M ED INP 04:39 → M PCU 05:26
PROVIDERS: ADMIT Hospitalist; ATTEND Hospitalist
DX: I16.0 Hypertensive urgency (principal); J91.8 Pleural effusion in other conditions classified elsewhere; I25.10 Atherosclerotic heart disease of native coronary artery without angina pectoris; Q79.1 Other congenital malformations of diaphragm; Z95.1 Presence of aortocoronary bypass graft; I10 Essential (primary) hypertension; Z79.899 Other long term (current) drug therapy; D72.1 Eosinophilia; E78.4 Other hyperlipidemia; N40.0 Benign prostatic hyperplasia without lower urinary tract symptoms; Z79.82 Long term (current) use of aspirin
CPT/HCPCS: 32555; 36415; 70450; 71010; 71020; 71023; 71250; 76775; 80048; 82042; 82150; 82465; 82550; 82553; 82945; 83615; 83735; 83986; 84157; 84478; 84484; 85025; 85027; 85610; 87070; 87075; 87102; 87116; 87205; 87206; 88108; 88305; 88313; 89051; 93005; 96374; 96376; 99285; G0378

== ENCOUNTER 2017-04-15 07:02 | Observation (INO) | payer MEDICARE ==
[~2017-04-15] VITALS: Ht 172.7 cm; Wt 78.6 kg
[2017-04-15] VITALS (8 sets, daily range): BP systolic 148–195; BP diastolic 67–81
[~2017-04-15 07:02] MED LIST changes: +AMIO200T PO; +FURO20TA2 PO; +FUSICAP PO; +LASI20TA PO; +LISI-542 PO; +LISI10TA4 PO; +LOPR1TAB6 PO; +POTA75TA PO; +SIMV40TA2 PO; +TYLE325T5 PO
[2017-04-15] MEDS ORDERED: LASI20TA PO (07:17)
[2017-04-15] MEDS ORDERED: POTA10CA PO (07:17)
[2017-04-15] MEDS ORDERED: LISI-538 PO (07:17)
[2017-04-15 07:49] LABS: BASO # 0.1 K/mm3 (0.0-0.2); BASO % 1.1 % (0.0-1.0); EOS # 0.9 K/mm3 (0.0-0.50); EOS % 12.8 % (0.0-3.0); LARGE UNSTAINED CELL # 0.1 K/mm3 (0.0-0.4); LARGE UNSTAINED CELL % 1.5 % (0.0-4.0); LYMPH # 2.8 K/mm3 (1.5-4.5); LYMPH % 38.8 % (24.0-44.0); MEAN CORPUSCULAR HEMOGLOBIN 26.1 pg (27.0-33.0); MEAN CORPUSCULAR HGB CONC 31.6 g/dl (32.0-36.5); MEAN CORPUSCULAR VOLUME 82.6 fl (80.0-96.0); MONO # 0.3 K/mm3 (0.0-0.8); MONO % 4.3 % (0.0-5.0); NEUTROPHILS # 2.9 K/mm3 (1.8-7.7); NEUTROPHILS % 41.5 % (36.0-66.0); PLATELET COUNT, AUTOMATED 271 k/mm3 (150-450); RED CELL DISTRIBUTION WIDTH 14.5 % (11.5-14.5); WHITE BLOOD COUNT 6.9 K/mm3 (4.0-10.0)
[2017-04-15] MEDS ORDERED: NS 500 ML IV ONE (08:00)
[2017-04-15 08:20] LABS: CALCIUM LEVEL 8.7 MG/DL (8.8-10.2); CREATININE FOR GFR 1.6 MG/DL (0.70-1.30); GLOMERULAR FILTRATION RATE 44.2 (>35); POTASSIUM SERUM 3.7 MEQ/L (3.5-5.1)
--- NOTE | 2017-04-15 08:59 | REP ---
Portable chest x-ray: Single view. History: Syncope. Comparison study: December 24, 2016. Findings: The patient is status post prior median sternotomy. There is fibroatelectasis in the left base similar to the prior study. There is some linear fibrosis in the right base as well. No definite infiltrate is seen. Heart is not enlarged. There are orthopedic anchors in the left humeral head. Impression: Bibasilar fibrosis. Prior sternotomy. No acute disease. Signed by Miah Donovan MD 04/15/2017 03:18 P
--- NOTE | 2017-04-15 09:10 | ECGEPIP ---
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
[2017-04-15] MEDS ORDERED: LISI10TA4 PO (10:41)
[2017-04-15] MEDS ORDERED: HYDR-3363 PO (10:46)
[2017-04-15] MEDS ORDERED: ADVI200T PO (10:46)
[2017-04-15] MEDS ORDERED: ONDANSETRON 4MG/2ML VIAL (J2405) IV PRN (11:00)
[2017-04-15] MEDS ORDERED: ACETAMINOPHEN 325 MG TAB PO PRN (11:00)
[2017-04-15] MEDS ORDERED: hydrOXYzine 25 MG TAB PO PRN (11:00)
[2017-04-15] MEDS ORDERED: ACETAMINOPHEN TAB 650MG DOSE (2X325MG) PO PRN (11:00)
[2017-04-15 11:26] LABS: MICROSCOPIC INDICATED? NO (NO)
[2017-04-15] MEDS ORDERED: LEVOTHYROXINE 12.5MCG PER 1/2 TAB (0.0125MG) PO ONE (11:30)
[2017-04-15] MEDS ORDERED: LEVOTHYROXINE 25MCG TABLET (0.025MG) PO ONE (11:30)
[2017-04-15] MEDS: NS 1,500 ML IV SCH (11:36)
[2017-04-15] MEDS: ASPIRIN 81 MG ENTERIC TAB PO SCH (11:36)
[2017-04-15] MEDS: OMEPRAZOLE 20 MG CAP PO SCH (11:36)
[2017-04-15] MEDS: HEPARIN SOD (PORCINE) 5000 UNITS/ML VIAL SC SCH ×2 (14:39→20:49)
[2017-04-15] MEDS: **hydrALAZINE HCL** 25 MG TAB PO SCH ×2 (14:40→16:46)
--- NOTE | 2017-04-15 16:38 | HPEPDOC ---
General Date of Admission Apr 15, 2017 at 10:51 Primary Care Physician: Jr Palomo Collins Chief Complaint The patient is a 81-year-old male admitted with a reason for visit of Syncope. Source: Patient, Family Exam Limitations: No limitations History of Present Illness 81-year-old male with past medical history of hypertension, dyslipidemia, BPH, coronary artery disease with CABG 4 in October 2016, and recent admission for left pleural effusion status post drainage with pigtail catheter in December 2016 presented to the ER with a chief complaint of a syncopal episode. According to the patient he was sitting in his chair when all of a sudden he started to feel significantly lightheaded upon getting up. He subsequently had a near syncopal episode. After settling down for a few minutes and trying to get up again the patient once again had a near syncopal episode. The patient's who is at the bedside denies noting any jerking activity, tongue biting, or any fecal/ urinary incontinence. The patient denied any prodromal symptoms such as chest pain, palpitations, shortness of breath, abdominal pain, or any nausea/vomiting/ diarrhea. Upon arrival of EMS the patient was noted to be hypotensive with a blood pressure in the 80s over 40s. In the ER, the patient's blood pressure did normalize while supine. However, the patient was noted to have positive orthostatic vital signs. In addition the patient was also noted to have an acute on chronic kidney injury. The patient was admitted to the hospitalist service for further evaluation and management. Home Medications Scheduled Aspirin (Aspirin 81) 81 Mg Tab, 81 MG PO DAILY, (Reported) Furosemide (Lasix) 20 Mg Tab, 20 MG PO Q2D, (Reported) TAKES WITH KLOR-CON Levothyroxine Sodium (Synthroid) 25 Mcg Tab, 12.5 MCG PO DAILY@06 Lisinopril (Lisinopril) 20 Mg Tab, 20 MG PO QHS, (Reported) 30 MG TOTAL PER DAY Lisinopril (Lisinopril) 10 Mg Tab, 10 MG PO DAILY, (Reported) 30 MG TOTAL PER DAY Metoprolol Tartrate (Lopressor) 50 Mg Tab, 25 MG PO BID, (Reported) Multivitamins *[facility] STOCKED* (Thera M Plus *[facility] STOCKED*) 1 Tab Tab, 1 TAB PO DAILY, (Reported) Omeprazole (Omeprazole) 20 Mg Cap, 20 MG PO DAILY, (Reported) Potassium Chloride (Klor-Con M10) 10 Meq Tabcr, 20 MEQ PO Q2D, (Reported) TAKES WITH LASIX Simvastatin - High Dose (Simvastatin) 40 Mg Tab, 20 MG PO QPM, (Reported) Scheduled PRN Acetaminophen (Tylenol) 325 Mg Tab, 650 MG PO Q4H PRN for PAIN, (Reported) Hydroxyzine HCl (Hydroxyzine HCl) 25 Mg Tab, 25 MG PO Q6H PRN for ITCHING, ( Reported) Ibuprofen (Advil) 200 Mg Tab, 200 MG PO QID PRN for PAIN, (Reported) Allergies Coded Allergies: No Known Drug Allergy (Unverified Allergy, Unknown, 12/22/16) Past Medical History Medical History As noted in HPI. Surgical History CABG 4 in 2017, tonsillectomy, adenoidectomy, TURP, repair left rotator cuff Family History Significant Family History: No pertinent family hx Social History * Smoker: Denies Alcohol: Denies Drugs: denies Lives at home with his . Is fairly active and independent at baseline, is able to swim 20 minutes a day 3 times a week, in addition to walking long distances, and playing 18 holes of golf. He is and lives with his Review of Symptoms Other systems 10 point review of systems negative unless otherwise specified in HPI. Physical Examination General Exam: Positive: Alert, Cooperative, No Acute Distress ENT Exam: Positive: Atraumatic, Mucous membr. moist/pink Neck Exam: Negative: JVD Chest Exam: Positive: Clear to auscultation, Normal air movement Heart Exam: Positive: Rate Normal, Normal S1, Normal S2 Telemetry: Positive: Sinus Abdomen Exam: Positive: Soft, Negative: Tenderness Extremity Exam: Negative: Tenderness, Swelling Skin Exam: Positive: Other skin issue (patient noted to have a macular rash across upper back and extremities. No open lesions or purulent discharge noted.) Psych Exam: Positive: Oriented x 3 Vital Signs Vital Signs Date Time Temp Pulse Resp B/P (MAP) Pulse Ox O2 Delivery O2 Flow Rate FiO2 04/15/17 16:00 97.0 73 18 159/79 (105) 97 Room Air Laboratory Data Labs 24H Laboratory Tests 2 04/15/17 07:26: Urine Appearance CLEAR, Urine Color YELLOW, Urine pH 6.0, Urine Specific [place] 1.014, Urine Protein 1+H, Urine Glucose (UA) NEGATIVE, Urine Ketones NEGATIVE, Urine Urobilinogen 0.2, Urine Bilirubin NEGATIVE, Urine Leukocyte Esterase NEGATIVE, Urine Blood NEGATIVE, Urine Nitrite NEGATIVE, Urine WBC (Auto ) 0, Urine RBC (Auto) 0, Urine Hyaline Casts (Auto) 0, Urine Bacteria (Auto) NEGATIVE, Urine Squamous Epithelial Cells 0, Urine Mucus (Auto) SMALL, Urine Sperm (Auto) 04/15/17 07:36: White Blood Count 6.9, Red Blood Count 5.27, Hemoglobin 13.8L, Hematocrit 43.6, Mean Corpuscular Volume 82.6, Mean Corpuscular Hemoglobin 26.1L, Mean Corpuscular Hemoglobin Concent 31.6L, Red Cell Distribution Width 14.5, Platelet Count 271, Neutrophils (%) (Auto) 41.5, Lymphocytes (%) (Auto) 38.8, Monocytes (%) (Auto) 4.3, Eosinophils (%) (Auto) 12.8H, Basophils (%) (Auto) 1.1H, Neutrophils # (Auto) 2.9, Lymphocytes # (Auto) 2.8, Monocytes # (Auto) 0.3 , Eosinophils # (Auto) 0.9H, Basophils # (Auto) 0.1, Large Unclassified Cells % 1.5, Large Unclassified Cells # 0.1, Anion Gap 7L, Glomerular Filtration Rate 44.2, Blood Urea Nitrogen 20H, Creatinine 1.60H, Sodium Level 145, Potassium Level 3.7, Chloride Level 108H, Carbon Dioxide Level 30, Calcium Level 8.7L, Magnesium Level 2.0, Thyroid Stimulating Hormone (TSH) 16.700H 04/15/17 11:05: Total Creatine Kinase 68, Creatine Kinase MB 1.0, Creatine Kinase MB Relative Index 1.47, Troponin I < 0.02, Free Thyroxine 0.85 CBC/BMP Laboratory Tests 04/15/17 07:36 Red Blood Count 5.27, Mean Corpuscular Volume 82.6, Mean Corpuscular Hemoglobin 26.1 L, Mean Corpuscular Hemoglobin Concent 31.6 L, Red Cell Distribution Width 14.5, Neutrophils (%) (Auto) 41.5, Lymphocytes (%) (Auto) 38.8, Monocytes (%) ( Auto) 4.3, Eosinophils (%) (Auto) 12.8 H, Basophils (%) (Auto) 1.1 H, Neutrophils # (Auto) 2.9, Lymphocytes # (Auto) 2.8, Monocytes # (Auto) 0.3, Eosinophils # (Auto) 0.9 H, Basophils # (Auto) 0.1, Calcium Level 8.7 L Plan / VTE VTE Prophylaxis Ordered?: Yes Plan Plan Near-Syncopal Episode 2/2 Orthostatic Hypotension from Vasovagal Episode Likely secondary to Vasovagal episode and Dehydration/Volume Depletion from Diuretic use, decreased PO Intake Blood Pressure medications will be held Gentle IVF Hydration Repeat Orthostatic Vitals Physical Therapy eval ordered EKG with no acute ST-T changes Cardiac Markers x 3 We will continue to monitor on Telemetry Acute Kidney Injury Superimposed on CKD Stage III Serum Cr: 1.6 (Baseline 1.1-1.34) Likely 2/2 Above Nephrotoxins held Gentle IVF Hydration Will repeat BMP in the AM Hypothyroidism Serum TSH level noted to be 16.7, Free T4 wnl We will start the patient on Levothyroxine 0.125mg He will need to follow up with PCP for lab check up and dose titration in 6-8 weeks Coronary artery disease with CABG 4 in October 2016 EKG with no acute ST-T Changes Will trend cardiac markers Cont ASA, Statin DOMINIC-I, Coreg held 2/2 Above Monitor on Telemetry Hypertension B/P Meds held 2/2 #1, YAIR Hydralazine ordered prn for SBP >150 Dyslipidemia Cont Statin GERD Cont PPI Recent admission for left pleural effusion status post drainage with pigtail catheter in December 2016 No complaints of respiratory distress Will cont to monitor DVT Prophylaxis Heparin ABRAN MOJICA MD Apr 15, 2017 16:38
[2017-04-15] MEDS ORDERED: **hydrALAZINE HCL** 25 MG TAB PO ONE (20:00)
[2017-04-15] MEDS ORDERED: SIMVASTATIN 20 MG TAB PO SCH (21:00)
[2017-04-16] VITALS: BP 182/80
[2017-04-16] MEDS: **hydrALAZINE HCL** 25 MG TAB PO SCH ×2 (00:14→05:56)
[2017-04-16] MEDS: NS 1,500 ML IV SCH (02:13)
[2017-04-16 04:00] VITALS: BP 173/80
[2017-04-16 05:20] LABS: MEAN CORPUSCULAR HGB CONC 33.4 g/dl (32.0-36.5); MEAN CORPUSCULAR VOLUME 80.9 fl (80.0-96.0); RED CELL DISTRIBUTION WIDTH 14.7 % (11.5-14.5)
[2017-04-16 05:43] LABS: ANION GAP 8 MEQ/L (8-16); BLOOD UREA NITROGEN 18 MG/DL (7-18); CALCIUM LEVEL 8.7 MG/DL (8.8-10.2); CARBON DIOXIDE LEVEL 26 MEQ/L (21-32); CHLORIDE LEVEL 113 MEQ/L (98-107); CREATININE FOR GFR 1.38 MG/DL (0.70-1.30); GLOMERULAR FILTRATION RATE 52.4 (>35); GLUCOSE, FASTING 109 MG/DL (83-110); MAGNESIUM LEVEL 1.9 MG/DL (1.8-2.4); POTASSIUM SERUM 3.8 MEQ/L (3.5-5.1); SODIUM LEVEL 147 MEQ/L (136-145)
[2017-04-16 05:56] VITALS: BP 170/75
[2017-04-16] MEDS: HEPARIN SOD (PORCINE) 5000 UNITS/ML VIAL SC SCH (05:57)
[2017-04-16 06:00] VITALS: BP 170/75
[2017-04-16] MEDS ORDERED: LEVOTHYROXINE 12.5MCG PER 1/2 TAB (0.0125MG) PO SCH (06:00)
[2017-04-16 06:04] VITALS: BP 170/75
[2017-04-16] MEDS: OMEPRAZOLE 20 MG CAP PO SCH (07:58)
[2017-04-16] MEDS: ASPIRIN 81 MG ENTERIC TAB PO SCH (07:58)
[2017-04-16] MEDS ORDERED: LEVO25TA5 PO (08:23)
--- NOTE | 2017-04-16 13:51 | DS.PDOC ---
Discharge Summary General Date of Admission Apr 15, 2017 at 10:51 Date of Discharge 04/16/17 Discharge Summary PROCEDURES PERFORMED DURING STAY: None. ADMITTING DIAGNOSES: 1. .Near Syncope 2/2 Vasovagal Episode 2. .Acute Kidney Injury Superimposed on CKD stage III DISCHARGE DIAGNOSES: 1. .Near Syncope 2/2 Vasovagal Episode 2. .Acute Kidney Injury Superimposed on CKD stage III COMPLICATIONS/CHIEF COMPLAINT: Syncope. HISTORY OF PRESENT ILLNESS: . 81-year-old male with past medical history of hypertension, dyslipidemia, BPH, coronary artery disease with CABG 4 in October 2016, and recent admission for left pleural effusion status post drainage with pigtail catheter in December 2016 presented to the ER with a chief complaint of a syncopal episode. According to the patient he was sitting in his chair when all of a sudden he started to feel significantly lightheaded upon getting up. He subsequently had a near syncopal episode. After settling down for a few minutes and trying to get up again the patient once again had a near syncopal episode. The patient's who is at the bedside denies noting any jerking activity, tongue biting, or any fecal/ urinary incontinence. The patient denied any prodromal symptoms such as chest pain, palpitations, shortness of breath, abdominal pain, or any nausea/vomiting/ diarrhea. Upon arrival of EMS the patient was noted to be hypotensive with a blood pressure in the 80s over 40s. In the ER, the patient's blood pressure did normalize while supine. However, the patient was noted to have positive orthostatic vital signs. In addition the patient was also noted to have an acute on chronic kidney injury. The patient was admitted to the hospitalist service for further evaluation and management. During hospitalization, the patient was monitored on telemetry, with serial orthostatic vital signs, and serial cardiac markers. The patient did not have any acute events while in the hospital, and his lab values were noted to be trending back to within his normal baseline limits. The patient's acute kidney injury resolved with some gentle IV fluid hydration. The patient did not have any notable events on pvc monitor. The patient did reveal to me that he has had 3 similar episodes in the past of near syncope. He states that he had a tilt table test done in May 2016 in [place] which was positive for vasovagal syncope. I do suspect that the patient's near syncopal episode was secondary to vasovagal syndrome be given the patient's clinical presentation. At this time, the patient states he is feeling much better and is eager to return home. I've advised the patient to follow-up with his hog dropper, with whom he is scheduled to see later this afternoon. In addition the patient has been advised to follow-up with his primary care physician within one to 2 weeks. He is to return to the ER for any acute emergencies. DISCHARGE MEDICATIONS: Please see below. ALLERGIES: Please see below. PHYSICAL EXAMINATION ON DISCHARGE: VITAL SIGNS: Please see below. General Exam: Positive: Alert, Cooperative, No Acute Distress ENT Exam: Positive: Atraumatic, Mucous membr. moist/pink Neck Exam: Negative: JVD Chest Exam: Positive: Clear to auscultation, Normal air movement Heart Exam: Positive: Rate Normal, Normal S1, Normal S2 Telemetry: Positive: Sinus Abdomen Exam: Positive: Soft, Negative: Tenderness Extremity Exam: Negative: Tenderness, Swelling Skin Exam: Positive: Other skin issue (patient noted to have a macular rash across upper back and extremities. No open lesions or purulent discharge noted.) Psych Exam: Positive: Oriented x 3 LABORATORY DATA: Please see below. IMAGING: Portable chest x-ray: Single view. History: Syncope. Comparison study: December 24, 2016. Findings: The patient is status post prior median sternotomy. There is fibroatelectasis in the left base similar to the prior study. There is some linear fibrosis in the right base as well. No definite infiltrate is seen. Heart is not enlarged. There are orthopedic anchors in the left humeral head. Impression: Bibasilar fibrosis. Prior sternotomy. No acute disease. PROGNOSIS: Medically stable ACTIVITY: As tolerated. DIET: . 2 g low sodium diet DISCHARGE PLAN: DISPOSITION: 01 Home, Self-Care. DISCHARGE INSTRUCTIONS: 1. . Follow-up with primary care physician within one week 2. . Follow-up with hog dropper with appointment for later today 3. . Follow-up with teasel setter as scheduled tomorrow for skin rash ITEMS TO FOLLOWUP ON ON OUTPATIENT: 1. . Return to the ER for any acute emergencies DISCHARGE CONDITION: Stable. TIME SPENT ON DISCHARGE: Greater than 30 minutes. Vital Signs/I&Os Vital Signs Date Time Temp Pulse Resp B/P (MAP) Pulse Ox O2 Delivery O2 Flow Rate FiO2 04/16/17 06:04 170/75 (106) 04/16/17 04:00 99.1 92 18 95 Room Air I&O- Last 24 Hours up to 6 AM 04/16/17 06:00 Intake Total 2910 ml Output Total 175 ml Balance 2735 ml Laboratory Data Labs 24H Laboratory Tests 2 04/15/17 18:47: Total Creatine Kinase 53, Creatine Kinase MB 1.0, Creatine Kinase MB Relative Index 1.88, Troponin I < 0.02 04/16/17 04:35: Total Creatine Kinase 56, Creatine Kinase MB 1.0, Creatine Kinase MB Relative Index 1.78, Troponin I < 0.02, Anion Gap 8, Glomerular Filtration Rate 52.4, Blood Urea Nitrogen 18, Creatinine 1.38H, Sodium Level 147H, Potassium Level 3.8 , Chloride Level 113H, Carbon Dioxide Level 26, Calcium Level 8.7L, Magnesium Level 1.9 CBC/BMP Laboratory Tests 04/16/17 04:35 Red Blood Count 4.11 L, Mean Corpuscular Volume 80.9, Mean Corpuscular Hemoglobin 27.0, Mean Corpuscular Hemoglobin Concent 33.4, Red Cell Distribution Width 14.7 H, Calcium Level 8.7 L, Total Creatine Kinase 56 Discharge Medications Scheduled Aspirin (Aspirin 81) 81 Mg Tab, 81 MG PO DAILY, (Reported) Furosemide (Lasix) 20 Mg Tab, 20 MG PO Q2D, (Reported) TAKES WITH KLOR-CON Levothyroxine Sodium (Synthroid) 25 Mcg Tab, 12.5 MCG PO DAILY@06 Lisinopril (Lisinopril) 20 Mg Tab, 20 MG PO QHS, (Reported) 30 MG TOTAL PER DAY Lisinopril (Lisinopril) 10 Mg Tab, 10 MG PO DAILY, (Reported) 30 MG TOTAL PER DAY Metoprolol Tartrate (Lopressor) 50 Mg Tab, 25 MG PO BID, (Reported) Multivitamins *[facility] STOCKED* (Thera M Plus *[facility] STOCKED*) 1 Tab Tab, 1 TAB PO DAILY, (Reported) Omeprazole (Omeprazole) 20 Mg Cap, 20 MG PO DAILY, (Reported) Potassium Chloride (Klor-Con M10) 10 Meq Tabcr, 20 MEQ PO Q2D, (Reported) TAKES WITH LASIX Simvastatin - High Dose (Simvastatin) 40 Mg Tab, 20 MG PO QPM, (Reported) Scheduled PRN Acetaminophen (Tylenol) 325 Mg Tab, 650 MG PO Q4H PRN for PAIN, (Reported) Hydroxyzine HCl (Hydroxyzine HCl) 25 Mg Tab, 25 MG PO Q6H PRN for ITCHING, ( Reported) Ibuprofen (Advil) 200 Mg Tab, 200 MG PO QID PRN for PAIN, (Reported) Allergies Coded Allergies: No Known Drug Allergy (Unverified Allergy, Unknown, 12/22/16) ABRAN SHAVER MD Apr 16, 2017 13:51
== END 2017-04-16 09:17 | disposition home or self-care (01) ==
LOC: M ED 07:02 → EDBD 07:02 → M ED INP 10:51 → M ICU 12:48
PROVIDERS: ADMIT Internal Medicine; ATTEND Internal Medicine
DX: R55 Syncope and collapse (principal); N17.9 Acute kidney failure, unspecified; N18.3 Chronic kidney disease, stage 3 (moderate); E78.5 Hyperlipidemia, unspecified; I12.9 Hypertensive chronic kidney disease with stage 1 through stage 4 chronic kidney disease, or unspecified chronic kidney disease; E03.9 Hypothyroidism, unspecified; N40.0 Benign prostatic hyperplasia without lower urinary tract symptoms; I25.10 Atherosclerotic heart disease of native coronary artery without angina pectoris; K21.9 Gastro-esophageal reflux disease without esophagitis; Z95.1 Presence of aortocoronary bypass graft; Z79.82 Long term (current) use of aspirin; Z79.899 Other long term (current) drug therapy
CPT/HCPCS: 36415; 71010; 80048; 81001; 82550; 82553; 83735; 84439; 84443; 84484; 85025; 85027; 93005; 93041; 94760; 96361; 96372; 99285; G0378

== ENCOUNTER → 2020-01-19 | Outpatient (CLI) | payer MEDICARE ==
[~2020-01-19] MED LIST changes: +ADVI200T PO; -ASPI1TAB PO; +ASPI81TA26 PO; -DILT240C75 PO; +DILT240C82 PO; +HYDR-3363 PO; +KLOR10TA76 PO; -LASI20TA PO; +LASI20TA3 PO; +LEVO25TA5 PO; +LISI40TA PO; -LISI40TAB PO; +OMEP1CAP73 PO; -OMEP20CA3 PO; -SIMV40TA2 PO; +SIMV40TA20 PO
--- NOTE | 2020-01-19 11:38 | REP ---
LUMBOSACRAL SPINE: Five views of the lumbosacral spine performed. There is no compression fracture or malalignment with normal lumbar lordosis. There is mild to moderate diffuse spurring of the vertebral bodies. There is mild disc space narrowing and subchondral sclerosis at all levels with a more moderate degree of disc space narrowing at L5-S1. Sclerosis and spurring is seen at the posterior facet joints of L4-5 and especially L5-S1. The posterior elements are intact. There is slight curvature toward the right. IMPRESSION: Diffuse degenerative changes most significantly at the L5-S1 level. No compression fracture. Electronically Signed by Pastor Olmos MD 01/19/2020 12:43 P
== END ==
LOC: M WUC 10:27
PROVIDERS: ATTEND Physician Assistant
DX: S39.012A Strain of muscle, fascia and tendon of lower back, initial encounter (principal); M51.37 Other intervertebral disc degeneration, lumbosacral region; X58.XXXA Exposure to other specified factors, initial encounter; Y92.9 Unspecified place or not applicable

== ENCOUNTER → 2022-03-13 | Outpatient (CLI) | payer MEDICARE ==
[~2022-03-13] MED LIST changes: -AMIO200T PO; +AMIO200T49 PO; -KLOR10TA76 PO; -LISI-538 PO; -LISI-542 PO; +LISI10TA22 PO; -LISI10TA4 PO; +LISI20TA33 PO; -LISI40TA PO; +LISI40TA4 PO; +LISI5TAB11 PO; +POTA-136 PO
== END ==
LOC: M WUC 11:04
PROVIDERS: ATTEND Physician Assistant Medical
DX: M48.14 Ankylosing hyperostosis [Forestier], thoracic region (principal); M48.16 Ankylosing hyperostosis [Forestier], lumbar region; M51.37 Other intervertebral disc degeneration, lumbosacral region; M25.78 Osteophyte, vertebrae; I70.0 Atherosclerosis of aorta